=== PATIENT | male | born 1940 | race Hispanic/Latino ===

== ENCOUNTER 2019-04-17 05:23 | Observation (INO) | payer MEDICARE ==
--- NOTE | 2019-04-13 17:26 | Diagnostic Imaging Report ---
EXAMINATION: CHEST 2 VIEWS INDICATION: Pre-operative COMPARISON: None FINDINGS: LINES/TUBES:None LUNGS:The lungs are well-inflated. No focal consolidation or pulmonary edema. PLEURA:No pleural effusion or pneumothorax. MEDIASTINUM:The cardiomediastinal silhouette appears normal in size and shape. Atherosclerotic calcifications of the thoracic aorta. BONES/SOFT TISSUES:No acute osseous injury. ABDOMEN:No free air under the diaphragm. IMPRESSION: No focal pneumonia or pulmonary edema. Signed by: Wang Graham MD on 04/13/2019 5:23 PM
[2019-04-13 17:45] LABS: BASOPHILS % 0.1 % (0.0-1.0); EOSINOPHILS % 0.1 % (0.0-6.0); HEMATOCRIT 45.6 % (38.2-49.6); HEMOGLOBIN 14.8 g/dL (14.0-18.0); LYMPHOCYTES % 1.6 % (18.0-39.1); MEAN CORPUSCULAR HEMOGLOBIN 30.6 pg (28-32); MEAN CORPUSCULAR HGB CONC 22.5 g/dL (31-35); MEAN CORPUSCULAR VOLUME 94.2 fL (81-99); MONOCYTES % 0.6 % (4.4-11.3); NEUTROPHILS % 5.3 % (38.7-80.0); PLATELET COUNT 210 x10e3/uL (140-360); RED BLOOD COUNT 4.84 x10e6/uL (4.3-5.7); RED CELL DISTRIBUTION WIDTH 12.9 % (11.7-14.4)
[2019-04-13 17:48] LABS: ANION GAP 14.9 mmol/L (8-16); BLOOD UREA NITROGEN 20 mg/dL (7-26); CARBON DIOXIDE 24 mmol/L (22-29); CHLORIDE 107 mmol/L (98-107); POTASSIUM 3.9 mmol/L (3.5-5.1); SODIUM 142 mmol/L (136-145)
[2019-04-13 17:49] LABS: BUN/CREATININE RATIO 18 (6-25); CALCIUM 9.2 mg/dL (8.4-10.2); CREATININE, SERUM 1.11 mg/dL (0.72-1.25); EST GLOMERULAR FILTRATION RATE > 60 ML/MIN (60-); GLUCOSE 85 mg/dL (74-118)
[~2019-04-17] VITALS: Ht 180.3 cm; Wt 87.5 kg
[2019-04-17] VITALS (7 sets, daily range): BP systolic 129–147; BP diastolic 75–90
[~2019-04-17 05:23] MED LIST: ASPIRIN81 MG PO; FLOMAX0.4 MG PO; LISINOPRIL10 MG PO; LOVASTATIN20 MG PO; METFORMIN HCL850 MG PO; TRIAMTERENE-HCTZ1 EA PO
--- OUTSIDE RECORDS SUMMARY | 2019-04-17 05:25 | XMS REPORT ---
Author Author [facility] Address Unknown Phone Unavailable Care Team Providers Care Library Media Assistant Name Role Phone CHANDAN CARLISLE Unavailable Unavailable Problems This patient has no known problems. Allergies, Adverse Reactions, Alerts This patient has no known allergies or adverse reactions. Medications This patient has no known medications. Results Test Description Test Time Test Comments Text Results Atomic Results Result Comments CHEST 2 VIEWS 2019-04-13 17:23:00 [place] [address] Patient Name: CARA WILKINS MR #: [id number] : 1940 Age/Sex: 78/M Req #: [id number] Adm Physician: Ordered by: CHANDAN CARLISLE MD Report #: [id number] Location: OR Room/Bed: Procedure: [id number] DX/CHEST 2 VIEWS Exam Date: 04/13/19 Exam Time: 1700 REPORT STATUS: Signed EXAMINATION: CHEST 2 VIEWS INDICATION: Pre-operative COMPARISON: None FINDINGS: LINES/TUBES:None LUNGS:The lungs are well-inflated. No focal consolidation or pulmonary edema. PLEURA:No pleural effusion or pneumothorax. MEDIASTINUM:The cardiomediastinal silhouette appears normal in size and shape. Atherosclerotic calcifications of the thoracic aorta. BONES/SOFT TISSUES:No acute osseous injury. ABDOMEN:No free air under the diaphragm. IMPRESSION: No focal pneumonia or pulmonary edema. Signed by: Adrian Graham MD on 04/13/2019 5:23 PM Dictated By: ADRIAN GRAHAM MD 22 Transcribed By: DIANA on 04/13/191722 COPY TO: CHANDAN CARLISLE MD
[2019-04-17] MEDS ORDERED: DEXAMETHASONE SOD PHOS 10 MG/1 ML VIAL ONE (06:03)
[2019-04-17] MEDS ORDERED: CELECOXIB 200 MG CAP ONE (06:03)
[2019-04-17] MEDS ORDERED: GABAPENTIN 300 MG CAP ONE (06:04)
[2019-04-17] MEDS ORDERED: VANCOMYCIN 1GM/NS 250 ML 250 ML ONE (06:07)
[2019-04-17] MEDS ORDERED: VANCOMYCIN HCL 1,000 MG ONE (06:31)
[2019-04-17] MEDS ORDERED: SODIUM CHLORIDE 0.9% 500ML 500 ML ONE (06:32)
[2019-04-17] MEDS ORDERED: BACITRACIN 50,000 UNIT VIAL ONE (06:32)
[2019-04-17] MEDS ORDERED: TRANEXAMIC ACID 1,000 MG/10 ML ML ONE (06:32)
[2019-04-17] MEDS ORDERED: ROPIVACAINE 246.25 MG, EPINEPHRINE HCL 1:1000 1ML 0.5 MG, CLONIDINE HCL 0.08 MG, KETORO... INJ ONE ×5 (07:30)
[2019-04-17] MEDS ORDERED: KETOROLAC TROMETHAMINE 30 MG/ML VIAL IV PRN (08:30)
[2019-04-17] MEDS ORDERED: PROMETHAZINE HCL (IM) 25 MG/ML VIAL IM PRN (08:30)
[2019-04-17] MEDS ORDERED: DOCUSATE SODIUM 100 MG CAP PO PRN (08:30)
[2019-04-17] MEDS ORDERED: ONDANSETRON HCL INJ 2MG/ML 2ML 2 MG/ML VIAL IV PRN (08:30)
[2019-04-17] MEDS ORDERED: ZOLPIDEM TARTRATE 5 MG TAB PO PRN (08:30)
[2019-04-17] MEDS ORDERED: DIPHENHYDRAMINE HCL INJ 50 MG/ML VIAL IM/IV PRN (08:30)
--- NOTE | 2019-04-17 09:31 | Diagnostic Imaging Report ---
Exam: Right knee 2 views History: Postoperative Comparison: None. Findings: See impression Impression: Postoperative radiograph for a right total knee arthroplasty with intact cemented components. No complication. Signed by: Dr. Teto Oconnor M.D. on 04/17/2019 9:28 AM
--- NOTE | 2019-04-17 09:45 | NUR ---
Received patient from PACU. Right knee s/p surgical site with caryl wrap, no bleeding noted. Denies pain at this time. Patient is able to wiggle toes to right foot. Bilateral pedal pulses present. Call light in reach. Family members at bedside.
[2019-04-17] MEDS: SODIUM CHLORIDE 0.9% 1000ML 1,000 ML IV SCH ×2 (12:15→21:15)
[2019-04-17] MEDS: ACETAMINOPHEN 1000 MG/100 ML IV SCH ×3 (12:16→23:51)
--- NOTE | 2019-04-17 15:16 | Operative Report ---
DATE OF PROCEDURE: 04/17/2019 SURGEON: Nestor Conti MD CAUSE ANALYST: Vazquez Harris, certified PA. PREOPERATIVE DIAGNOSIS: Osteoarthritis, right knee. POSTOPERATIVE DIAGNOSIS: Osteoarthritis, right knee. PROCEDURE: Right total knee arthroplasty. INDICATIONS: The patient is an 78-year-old gentleman, who has end-stage arthritis of his right knee. He has failed conservative management and would like to proceed with a right total knee replacement. The risks and benefits of the surgery have been discussed. He states he understands and wishes to proceed. PROCEDURE IN DETAIL: The patient was brought to the operating room and placed under general anesthetic. He received prophylactic antibiotics, a regional block and tranexamic acid in the holding area. His right lower extremity was prepped and draped in a sterile manner. A preoperative time-out was performed. The extremity was exsanguinated and a proximal tourniquet was inflated to 300 mmHg. An anterior incision with a medial parapatellar arthrotomy was performed. Soft tissue releases were performed to bring the knee up into flexion with the patella everted. Meniscal remnants, marginal osteophytes, and the cruciate ligaments were sacrificed. A Melendez and [employer] knee system was used with ultracongruent tibial insert. An extramedullary cutting guide was used to resect the proximal tibia. The tibia was a size 7. The central fin punch was impacted and attention was directed towards the distal femur. An intramedullary cutting guide was used to resect the distal femur in 6 degrees of valgus and rotation referencing off a combination of landmarks including Whitesides line, the epicondylar axis and the posterior condyles. The femoral component was also a size #7. The anterior and posterior cuts were made. Trial reductions were performed. A 9 mm ultracongruent tibial insert provided appropriate soft tissue balancing in full extension and 90 degrees of flexion. The patella was then resurfaced with a 35 mm x 7.5 mm patellar button. The thickness was checked before and after resurfacing and was right around 25 mm. Patellar tracking was noted to be concentric. The trial implants were then all removed. A 100 mL premixed pericapsular ESTRELLITA injection was placed into the surrounding soft tissue. The wound was thoroughly irrigated with a shower tip pulsatile lavage. All bone cuts had been irrigated with a spray mixture of diluted polymyxin and vancomycin spray. The components were cemented into place using a single mix of high viscosity Biomet cement preloaded with antibiotics. Care was taken to remove extravasated cement. The wound was further irrigated while the cement cured. The arthrotomy was then closed with interrupted #1 Ethibond. The knee was put through flexion and extension to ensure a secure closure. The skin was closed with subcuticular Vicryl and lenin. A sterile Aquacel bandage was applied. The patient was extubated and transported to the recovery room in stable condition. Blood loss was minimal. All needle and sponge counts were correct. Nestor Conti MD DR/MARCELLA /[id number]
--- NOTE | 2019-04-17 15:19 | NUR ---
DR MALDONADO OFFICE PREARRANGED FOLLOWING DISCHARGE PLAN OF: HOME HEALTH WITH [facility] [phone] CONFIRMED WITH: [employer] to start 04/19 Addendum: 04/18/19 at 0849 by Cyndee Nina Therapy supply [facility] [employer] [phone] Company to deliver CPM and 3&1 commode.
--- NOTE | 2019-04-17 15:24 | NUR ---
Left Message for Gabriel at [facility], Addendum: 04/18/19 at 0848 by Cyndee Nina Spoke with Jade at [facility], gave her updated phone number for gabriel - [phone]. This [facility] will dispense walker to patient.
[2019-04-17] MEDS: VANCOMYCIN 1GM/NS 250 ML 250 ML IV SCH (16:47)
[2019-04-17] MEDS: ASPIRIN 325 MG TAB PO SCH (16:47)
[2019-04-17] MEDS: CELECOXIB 200 MG CAP PO SCH (16:47)
[2019-04-17] MEDS ORDERED: LIDOCAINE HCL 2% LOCAL INJ 5 ML SDV VIAL INJ ONE (18:32)
[2019-04-17] MEDS ORDERED: PROPOFOL IV EMULSION 10 MG/ML 20 ML VIAL ONE (18:32)
[2019-04-17] MEDS ORDERED: DEXAMETHASONE SOD PHOS INJ 4 MG/ML VIAL ONE (18:32)
[2019-04-17] MEDS ORDERED: EPHEDRINE SULFATE INJ 50 MG/10 ML SYR ONE (18:32)
[2019-04-17] MEDS ORDERED: ONDANSETRON HCL INJ 2MG/ML 2ML 2 MG/ML VIAL ONE (18:32)
[2019-04-17] MEDS ORDERED: SEVOFLURANE INHAL SOLN 250 ML PEN BTL ONE (18:32)
[2019-04-17] MEDS ORDERED: ROPIVACAINE 0.5% 5 MG/ML 30 ML SDV ONE (19:00)
--- NOTE | 2019-04-17 19:08 | NUR ---
Report given to night nurse. Respiration even and unlabored without SOB. Call light in reach. Family members at bedside.
[2019-04-17] MEDS ORDERED: FENTANYL CITRATE/PF 100MCG/2 ML INJ ONE (19:26)
[2019-04-18] VITALS: BP 140/79
[2019-04-18 04:00] VITALS: BP 137/78
[2019-04-18] MEDS: VANCOMYCIN 1GM/NS 250 ML 250 ML IV SCH (04:30)
[2019-04-18] MEDS: ACETAMINOPHEN 1000 MG/100 ML IV SCH (06:08)
[2019-04-18 06:18] LABS: HEMATOCRIT 36.3 % (38.2-49.6); HEMOGLOBIN 11.9 g/dL (14.0-18.0)
--- NOTE | 2019-04-18 07:15 | NUR ---
The pt. is in bed asleep with cpm in use. Bedside rounding has been completed and rails are up times 2 and call system in reach.
[2019-04-18 08:43] VITALS: BP 123/65
[2019-04-18] MEDS: ASPIRIN 325 MG TAB PO SCH (09:06)
[2019-04-18] MEDS: CELECOXIB 200 MG CAP PO SCH (09:06)
--- NOTE | 2019-04-18 10:13 | NUR ---
Dispensed walker to patient. Gave info for hh and dme companies. Explained peres and patient signed, copy to patient, original to chart
--- NOTE | 2019-04-18 10:57 | Consultation ---
DATE OF CONSULTATION: REASON FOR CONSULTATION: Postop medical management. HISTORY OF PRESENT ILLNESS: The patient is an 78-year-old gentleman, status post right total knee arthroplasty for end-stage osteoarthritis, who postoperatively denies any fevers, chills, nausea, vomiting, headache, shortness of breath, or dizziness. PAST MEDICAL HISTORY: Significant for arthritis, diabetes, and hypertension. MEDICATIONS: See MAR. ALLERGIES: PENICILLIN. SOCIAL HISTORY: . Smokes less than one pack per day. Retired. Nondrinker. FAMILY HISTORY: Diabetes and heart disease. PHYSICAL EXAMINATION: VITAL SIGNS: Temperature is 96.8, pulse 53, blood pressure 140/79, and sats 97% on room air. GENERAL: He is in no apparent distress, lying in bed, alert and oriented. NECK: Supple. CARDIOVASCULAR: Regular rate and rhythm. LUNGS: Clear to auscultation bilaterally. ABDOMEN: Good bowel sounds. Soft, nontender. EXTREMITIES: No clubbing or cyanosis. NEUROLOGIC: Nonfocal. ASSESSMENT AND PLAN: 1. Right knee pain. Continue with postoperative care and physical therapy. 2. Anemia. Check a CBC. 3. Hypertension. Continue with his medications and monitoring of his blood pressure. 4. Diabetes. Continue to monitor and restart his medicines when he has taken p.o. intake better. Please see hospital chart for full details. MD JUDE Scott/MARCELLA /[id number]
[2019-04-18 11:56] VITALS: BP 138/71
[2019-04-18] MEDS ORDERED: ACETAMINOPHEN 1000 MG/100 ML IV PRN (12:00)
[2019-04-18] MEDS ORDERED: HYDROCODONE/APAP 7.5MG-325MG 1 EA TAB PO PRN (12:00)
[2019-04-18] MEDS ORDERED: ACETAMINOPHEN 650 MG SUPP PR PRN (12:00)
[2019-04-18] MEDS ORDERED: HYDROCODONE/APAP 5MG-325MG TAB PO PRN (12:00)
[2019-04-18] MEDS ORDERED: INFLUENZA VIRUS VAC SPLIT INJ 0.5 ML SYR IM ONE (14:00)
[2019-04-18] MEDS ORDERED: INFLUENZA VIRUS VAC SPLIT INJ 0.5 ML SYR IM NR (14:00)
--- NOTE | 2019-04-18 14:55 | NUR ---
The pt. was provided flu vaccine prior to discharge and he removed the iv himself. he was provided walker and reports that the remaining dme's are being delivered to the home.
== END 2019-04-18 13:57 | disposition home health service (06) ==
LOC: OR 05:23 → PACU V 08:18 → MED/SURG 09:44
PROVIDERS: ADMIT Specialist; ATTEND Specialist
DX: M17.11 Unilateral primary osteoarthritis, right knee (principal); Z01.810 Encounter for preprocedural cardiovascular examination; Z01.812 Encounter for preprocedural laboratory examination; Z01.811 Encounter for preprocedural respiratory examination; E11.9 Type 2 diabetes mellitus without complications; I10 Essential (primary) hypertension; F17.210 Nicotine dependence, cigarettes, uncomplicated; Z83.3 Family history of diabetes mellitus; Z82.61 Family history of arthritis; Z82.49 Family history of ischemic heart disease and other diseases of the circulatory system; Z79.82 Long term (current) use of aspirin; Z79.84 Long term (current) use of oral hypoglycemic drugs; D64.9 Anemia, unspecified
CPT/HCPCS: 27447; 36415 ×3; 71046; 73560; 80048; 82948; 85014; 85018; 85025; 86850; 86900; 86920; 93005; 97116 ×2; 97139; 97161; 97530 ×2; C1713 ×3; G0378 ×2; J0131; J0171; J1100 ×2; J1885; J2001; J2405; J2704; J2795; J3010; J3370 ×3; J7030; J7040

== ENCOUNTER 2019-12-04 07:28 | Observation (INO) | payer MEDICARE ==
[2019-11-30 16:12] LABS: BASOPHILS # (AUTO) 0.1 (0.0-0.1); EOSINOPHILS # (AUTO) 0.2 (0.0-0.4); EOSINOPHILS % 2.5 % (0.0-6.0); HEMATOCRIT 43.1 % (38.2-49.6); HEMOGLOBIN 13.8 g/dL (14.0-18.0); LYMPHOCYTES # (AUTO) 1.6 (1.0-3.2); LYMPHOCYTES % 21.1 % (18.0-39.1); MEAN CORPUSCULAR HEMOGLOBIN 29.9 pg (28-32); MEAN CORPUSCULAR VOLUME 93.3 fL (81-99); MONOCYTES # (AUTO) 0.5 (0.2-0.8); MONOCYTES % 6.8 % (4.4-11.3); NEUTROPHILS # (AUTO) 5.3 (2.1-6.9); NEUTROPHILS % 68.3 % (38.7-80.0); PLATELET COUNT 214 x10e3/uL (140-360); RED BLOOD COUNT 4.62 x10e6/uL (4.3-5.7); RED CELL DISTRIBUTION WIDTH 13.2 % (11.7-14.4)
[~2019-12-04] VITALS: Ht 180.3 cm; Wt 87.5 kg
[2019-12-04] MEDS ORDERED: CELECOXIB 200 MG CAP ONE (07:39)
[2019-12-04] MEDS ORDERED: GABAPENTIN 300 MG CAP ONE (07:39)
[2019-12-04] MEDS ORDERED: DEXAMETHASONE SOD PHOS 10 MG/1 ML VIAL ONE (07:39)
[2019-12-04] MEDS ORDERED: CEFAZOLIN SOD 1 GM/NS 50ML 100 ML IV ONE (07:39)
[2019-12-04] MEDS ORDERED: ROPIVACAINE 246.25 MG, EPINEPHRINE HCL 1:1000 1ML 0.5 MG, CLONIDINE HCL 0.08 MG, KETORO... INJ ONE ×5 (07:45)
[2019-12-04] MEDS ORDERED: DEXTROSE 5% 250ML 250 ML IV ONE (08:04)
[2019-12-04] MEDS ORDERED: SODIUM CHLORIDE 0.9% 500ML 500 ML ONE (08:37)
[2019-12-04] MEDS ORDERED: TRANEXAMIC ACID 1,000 MG/10 ML ML ONE (08:37)
[2019-12-04] MEDS ORDERED: VANCOMYCIN HCL 1,000 MG ONE (08:37)
[2019-12-04] MEDS ORDERED: BACITRACIN 50,000 UNIT VIAL ONE (08:38)
[2019-12-04] MEDS ORDERED: ONDANSETRON HCL INJ 2MG/ML 2ML 2 MG/ML VIAL IV PRN (10:45)
[2019-12-04] MEDS ORDERED: ZOLPIDEM TARTRATE 5 MG TAB PO PRN (10:45)
[2019-12-04] MEDS ORDERED: HYDROCODONE/APAP 7.5MG-325MG 1 EA TAB PO PRN (10:45)
[2019-12-04] MEDS ORDERED: KETOROLAC TROMETHAMINE 30 MG/ML VIAL IV PRN (10:45)
[2019-12-04] MEDS ORDERED: DOCUSATE SODIUM 100 MG CAP PO PRN (10:45)
[2019-12-04] MEDS ORDERED: ACETAMINOPHEN 650 MG SUPP PR PRN (10:45)
[2019-12-04] MEDS ORDERED: HYDROCODONE/APAP 5MG-325MG TAB PO PRN (10:45)
[2019-12-04] MEDS ORDERED: DIPHENHYDRAMINE HCL INJ 50 MG/ML VIAL IV PRN (10:45)
--- NOTE | 2019-12-04 11:47 | NUR ---
Recvd patient from PACU, AAOx3, Left knee surgical site is intact, not in any distress
--- NOTE | 2019-12-04 12:29 | NUR ---
DR MALDONADO OFFICE PREARRANGED FOLLOWING DISCHARGE PLAN OF: HOME [address] [facility], [address] HOME HEALTH WITH [facility] CONFIRMED WITH [employer] [phone] DME 3 IN ONE COMMODE, AND CPM PROVIDED BY [employer] [phone]. I PROVIDED WALKER OBTAINED SIGNATURES AND WILL FILE WITH [employer] SIGNED AND ON CHART COPY LEFT WITH PATIENT GAVE CARD FOR QUESTIONS AND OR CONCERNS.
--- NOTE | 2019-12-04 12:35 | NUR ---
Patient is on CPM machine, order recvd from Dr Mclean to Continue Home Meds
--- NOTE | 2019-12-04 13:01 | Diagnostic Imaging Report ---
EXAMINATION: KNEE LEFT 1-2 VIEWS INDICATION: Postoperative COMPARISON: None FINDINGS: Portable AP and lateral radiographs of the left knee demonstrate postoperative findings of left total knee replacement. Alignment is anatomic. No unexpected fracture. Postoperative soft tissue emphysema and small joint effusion. Surgical skin lenin in place. IMPRESSION: Anatomic alignment status post left total knee replacement. Signed by: Wang Graham MD on 12/04/2019 12:58 PM
[2019-12-04 13:57] VITALS: BP 125/68
[2019-12-04] MEDS ORDERED: SEVOFLURANE INHAL SOLN 250 ML PEN BTL ONE (14:05)
[2019-12-04] MEDS ORDERED: ACETAMINOPHEN 1000 MG/100 ML IV ONE (14:05)
[2019-12-04] MEDS ORDERED: ONDANSETRON HCL INJ 2MG/ML 2ML 2 MG/ML VIAL ONE (14:05)
[2019-12-04] MEDS ORDERED: LIDOCAINE HCL 2% LOCAL INJ 5 ML SDV VIAL INJ ONE (14:05)
[2019-12-04] MEDS ORDERED: PROPOFOL IV EMULSION 10 MG/ML 20 ML VIAL ONE (14:05)
[2019-12-04] MEDS ORDERED: ETOMIDATE 2 MG/ML 10 ML INJ IV ONE (14:05)
[2019-12-04] MEDS ORDERED: BUPIVACAINE HCL 0.5% INJ 30 ML VIAL INJ ONE (14:41)
[2019-12-04] MEDS ORDERED: EPINEPHRINE HCL 1:1000 1ML 1 MG/ML AMP ONE (14:41)
[2019-12-04 14:46] VITALS: BP 125/68
[2019-12-04 16:45] VITALS: BP 142/74
[2019-12-04] MEDS: CELECOXIB 200 MG CAP PO SCH (17:13)
[2019-12-04] MEDS: CEFAZOLIN SOD 1 GM/NS 50ML 50 ML IV SCH (17:13)
[2019-12-04] MEDS: METFORMIN HCL 500 MG TAB PO SCH (17:13)
[2019-12-04] MEDS: ASPIRIN 325 MG TAB PO SCH (17:13)
[2019-12-04] MEDS: SODIUM CHLORIDE 0.9% 1000ML 1,000 ML IV SCH ×2 (17:13→22:15)
[2019-12-04] MEDS: LISINOPRIL 20 MG TAB PO SCH (17:17)
--- NOTE | 2019-12-04 19:00 | NUR ---
RECEIVED REPORT FROM PREVIOUS NURSE. CALL LIGHT WITHIN REACH. PATIENT IN BED. ROUNDING PERFORMED.
--- NOTE | 2019-12-04 19:40 | Operative Report ---
DATE OF PROCEDURE: 12/04/2019 SURGEON: Nestor Conti MD [employer]DLE [employer]CHOOL TEACHER: Vazquez Harris PA-C PREOPERATIVE DIAGNOSIS: Osteoarthritis, left knee. POSTOPERATIVE DIAGNOSIS: Osteoarthritis, left knee. PROCEDURE: Left total knee arthroplasty. INDICATIONS: The patient is an otherwise frail 79-year-old gentleman, who has advanced osteoarthritis of his left knee. He has failed conservative management and would like to proceed with a left total knee replacement. He went through a right knee replacement about seven or eight months ago. He states that the knee replacement has dramatically improved his quality of life. He is highly motivated to have his left side done. He understands his underlying medical concerns making his recovery more challenging. All of his questions have been answered. He states he understands and wishes to proceed. PROCEDURE IN DETAIL: The patient was brought to the operating room and placed under general anesthetic. He received prophylactic antibiotics, a regional block and tranexamic acid in the holding area. His left lower extremity was prepped and draped in a sterile manner. A preoperative time-out was performed. The extremity was exsanguinated and a proximal tourniquet was inflated to 300 mmHg. An anterior incision with a medial parapatellar arthrotomy was performed. Soft tissue releases were performed to bring the knee up into flexion with the patella everted. Complete loss of articular cartilage down to polished subchondral bone was noted in the medial compartment. Meniscal remnants, marginal osteophytes and the cruciate ligaments were removed. A Melendez and [employer] knee system were used with ultracongruent tibial inserts. An extramedullary cutting guide was used to resect the proximal tibia. The tibial base plate was a size #7. The central fin punch was impacted and attention was directed towards the distal femur. An intramedullary cutting guide was used to resect the distal femur in 6 degrees of valgus and rotation referencing off a combination of landmarks including Whitesides line, the epicondylar axis, and the posterior condyles. The femoral component was also a size #7. The anterior and posterior cuts were made. Additional marginal osteophytes were removed. A trial reduction was performed. An 11 mm ultracongruent tibial insert provided appropriate soft tissue balancing in full extension and 90 degrees of flexion. The patella was resurfaced with a 35 mm x 9 mm patellar button. The thickness was checked before and after and was right around 26 mm. Patellar tracking was concentric. The trial implants were removed. The knee was thoroughly irrigated with a shower tip pulsatile lavage. Additional irrigation of all bone cuts had been performed using a spray mixture of diluted polymyxin and vancomycin spray. A 100 mL premixed pericapsular ESTRELLITA injection was placed into the surrounding soft tissue. The components were cemented into place using a single mix of high viscosity Biomet cement preloaded with antibiotics. Care was taken to remove extravasated cement. The wound was further irrigated while the cement cured. The arthrotomy was then closed after sprinkling 500 mg of vancomycin powder into the wound. The arthrotomy was closed with interrupted #1 Ethibond. The knee was put through flexion and extension to ensure a secure closure. The skin was closed with subcuticular Vicryl and lenin. A sterile Aquacel bandage was applied. The patient was extubated and transported to the recovery room in stable condition. Blood loss was minimal. All needle and sponge counts were correct. Nestor Conti MD DR/MARCELLA /[id number]
[2019-12-04 20:00] VITALS: BP 162/77
[2019-12-04 20:40] VITALS: BP 162/77
[2019-12-04] MEDS ORDERED: SIMVASTATIN 20 MG TAB PO SCH (21:00)
[2019-12-05] VITALS: BP 155/70
[2019-12-05] MEDS: CEFAZOLIN SOD 1 GM/NS 50ML 50 ML IV SCH ×2 (00:47→13:17)
[2019-12-05 04:00] VITALS: BP 143/73
[2019-12-05 04:49] LABS: HEMATOCRIT 40.2 % (38.2-49.6)
--- NOTE | 2019-12-05 07:28 | NUR ---
GAVE BEDSIDE SHIFT REPORT TO ONCOMING NURSE. CALL LIGHT WITHIN REACH. PATIENT IN BED. HOURLY ROUNDING PERFORMED.
[2019-12-05 07:51] VITALS: BP 143/75
[2019-12-05] MEDS: METFORMIN HCL 500 MG TAB PO SCH ×2 (08:00→13:17)
--- NOTE | 2019-12-05 08:12 | Consultation ---
DATE OF CONSULTATION: REASON FOR CONSULTATION: Postop medical management. HISTORY OF PRESENT ILLNESS: The patient is an 79-year-old gentleman, status post left knee arthroplasty for end-stage osteoarthritis. He complains of minimal pain in the left knee. REVIEW OF SYSTEMS: Otherwise denies on review of systems any chest pain, shortness of breath, dizziness, headaches, nausea, vomiting, fevers, or chills. PAST MEDICAL HISTORY: Significant for hypertension, BPH, diabetes, hyperlipidemia, and Parkinson disease. MEDICATIONS: See MAR. ALLERGIES: PENICILLIN. SOCIAL HISTORY: He is . He smokes less than a pack per day. Occasional social alcohol drinker. FAMILY HISTORY: Diabetes and heart disease. PHYSICAL EXAMINATION: VITAL SIGNS: 98.9, pulse 50, blood pressure 155/70, sats 99% on room air. GENERAL: No apparent distress, lying in bed. NECK: Supple. CARDIOVASCULAR: Regular rate and rhythm. LUNGS: Clear to auscultation bilaterally. ABDOMEN: Good bowel sounds. Soft, nontender. EXTREMITIES: No clubbing or cyanosis. Left knee is bandaged with no seepage. NEUROLOGIC: Nonfocal. Moves all extremities x4. ASSESSMENT/PLAN: 1. Left knee pain. We will continue with postoperative care. 2. Anemia. Check a CBC. 3. Diabetes. Continue with current care and monitoring. 4. Benign prostatic hyperplasia. Continue with his home medication. 5. Hyperlipidemia. Continue with his home medication. Continue with his cholesterol medicine. 6. Diabetes. Continue to monitor sugars. 7. Please see hospital chart for full details. MD JUDE Scott/MARCELLA /[id number]
[2019-12-05 08:44] VITALS: BP 143/75
[2019-12-05] MEDS ORDERED: ASPIRIN 81 MG CHEW TAB PO SCH (09:00)
[2019-12-05] MEDS ORDERED: TAMSULOSIN HCL 0.4 MG CAP PO SCH (09:00)
[2019-12-05] MEDS ORDERED: TRIAMTERENE/HCTZ 37.5-25 MG TAB PO SCH (09:00)
[2019-12-05] MEDS: CELECOXIB 200 MG CAP PO SCH (09:05)
[2019-12-05] MEDS: ASPIRIN 325 MG TAB PO SCH (09:05)
[2019-12-05] MEDS: LISINOPRIL 20 MG TAB PO SCH (10:08)
[2019-12-05] MEDS ORDERED: ACETAMINOPHEN 1000 MG/100 ML IV PRN (10:45)
[2019-12-05 11:22] VITALS: BP 122/63
[2019-12-05] MEDS ORDERED: ONDANSETRON HCL 4 MG ORAL DISINTEGRATING TAB PO PRN (11:30)
--- NOTE | 2019-12-05 13:50 | NUR ---
Patient discharged Home, Discharge instruction given, Patient aware about f/up appointment, Blu bandage removed , dressing intact on Left Knee, Patient denies any pain, No Distress noted , he worked with Physical therapy. Transported via wheelchair, family here to pick patient
== END 2019-12-05 14:00 | disposition home health service (06) ==
LOC: OR 07:28 → PACU V 10:37 → MED/SURG 11:49
PROVIDERS: ADMIT Specialist; ATTEND Specialist
DX: M17.0 Bilateral primary osteoarthritis of knee (principal); I10 Essential (primary) hypertension; G20 Parkinson's disease; E11.9 Type 2 diabetes mellitus without complications; Z96.651 Presence of right artificial knee joint; G62.9 Polyneuropathy, unspecified; N40.0 Benign prostatic hyperplasia without lower urinary tract symptoms; E78.5 Hyperlipidemia, unspecified; D64.9 Anemia, unspecified; Z11.59 Encounter for screening for other viral diseases
CPT/HCPCS: 27447; 36415 ×3; 73560; 82948 ×2; 85014; 85018; 85025; 86850; 86900; 86920; 97116 ×2; 97161; C1713; G0378 ×2; J0131; J0171; J0690 ×2; J1100; J1885; J2001; J2405; J2704; J2795; J3370; J7030; J7040; J7070; U0002